=== PATIENT | male | born 1970 ===

== ENCOUNTER → 2020-09-30 | Outpatient (CLI) | payer BC | END | disposition home or self-care (01) | LOC: CFH 13:19 | PROVIDERS: ATTEND Family Medicine | DX: K44.9 Diaphragmatic hernia without obstruction or gangrene (principal); R16.1 Splenomegaly, not elsewhere classified; K31.89 Other diseases of stomach and duodenum; R10.30 Lower abdominal pain, unspecified; J84.10 Pulmonary fibrosis, unspecified; Q63.2 Ectopic kidney | CPT/HCPCS: 74176 ==